=== PATIENT | female | born 1950 | race Caucasian/White ===

== ENCOUNTER → 2016-11-04 | Outpatient (CLI) | payer OTHER ==
[2016-01-11 05:30] VITALS: BP 135/59
[~2016-11-04] MED LIST: ACET-704 PO; ACET325T21 PO; ACET650S11 RC; ACET650S19 PO; ALPR0.254 PO; BISA10SU2 PR; CETI10TA22 PO; CITA20TA9 PO; CLON0.5T3 PO; DIVA500T4 PO; FURO-69 PO; GUAI118L3 PO; LEVE500T56 PO; LOVA20TA2 PO; MAG360OR24 PO; MAGN2400 PO; NAPR500T3 PO; OMEP20CA9 PO; OXYC10TA57 PO; OXYC5TAB PO; PHEN32.42 PO; POLY17PO3 PO; POLY17PO5 PO; POTA20TA84 PO; SENN8.6C2 PO
--- NOTE | 2016-11-04 21:01 | EEG ---
DATE OF SERVICE: 11/04/2016 EEG NUMBER: [id number]. OBJECTIVE: This is a 66-year-old female patient with history of epilepsy and mental retardation. EEG was requested to evaluate seizure activity. METHODS: Twenty electrodes were applied according to the international 10-20 electrode placement system. EKG monitoring, hyperventilation, intermittent photic stimulation, and monopolar and bipolar montages are routinely utilized. The record was obtained on a digital system with video monitoring. MEDICATION: Depakote FINDINGS: 1. Background: The patient was recorded in the awake and drowsy states. No sleep state was recorded. The overall background amplitude is 10-20 microvolts. A posterior dominant rhythm of 8 Hz is observed. 2. Abnormalities: No specific epileptiform discharge or electrographic seizure is seen. No focal or diffuse slowing. 3. Activation: Hyperventilation was not performed because the patient was unable to perform the technique. Intermittent photic stimulation was performed with photic driving. No specific epileptiform discharge or electrographic seizure induced. IMPRESSION: This EEG is within the normal limits of the study for the awake and drowsy states. No sleep state was recorded. No focal, lateralizing, specific epileptiform discharge, or electrographic seizure is seen. HEMA KESSLER MD DR: MALCOLM/glen JOB#: [id number] / [id number] DEONNA
== END | disposition home or self-care (01) ==
LOC: RT 07:52
PROVIDERS: ATTEND Psychiatry & Neurology Neurology
DX: G40.909 Epilepsy, unspecified, not intractable, without status epilepticus (principal)
CPT/HCPCS: 95816

== ENCOUNTER → 2017-12-29 | Outpatient (CLI) | payer OTHER | END | disposition home or self-care (01) | LOC: RT 07:46 | DX: R56.9 Unspecified convulsions (principal) | CPT/HCPCS: 95816 ==

== ENCOUNTER → 2019-01-04 | Outpatient (CLI) | payer OTHER ==
[2017-03-24 11:00] VITALS: BP 100/42
[~2019-01-04] MED LIST changes: +ACET500T68 PO; +ACET650S PO; -ACET650S19 PO; +CLON0.5T11 PO; -CLON0.5T3 PO; +CYAN10005 PO; +ERGO500027 PO; +GABA-585 PO; +LEVE100020 PO; +NAPR-514 PO; -NAPR500T3 PO; +NAPR500T8 PO; +OMEP20CA10 PO; -OMEP20CA9 PO; -OXYC5TAB PO; +OXYC5TAB4 PO; +POLY17PO28 PO; +POLY17PO29 PO; -POLY17PO3 PO; -POLY17PO5 PO
--- NOTE | 2019-01-12 11:45 | EEG ---
DATE OF SERVICE: 01/04/2019 EEG NUMBER: [id number] OBJECTIVE: This is a 68-year-old female patient with a history of epilepsy and intellectual disability. EEG was requested to evaluate seizure activity. METHODS: Twenty electrodes were applied according to the international 10-20 electrode placement system. EKG monitoring, hyperventilation, intermittent photic stimulation, monopolar and bipolar montages are routinely utilized. The record was obtained on a digital system with video monitoring. MEDICATION: Depakote. FINDINGS: 1. Background: The patient was recorded in the awake and drowsy states. No actual sleep state was recorded. The overall background amplitude is 10-20 microvolts. A posterior dominant rhythm of 6-8 Hz is observed. 2. Abnormalities: No specific epileptiform discharge or electrographic seizure is seen. No focal or diffuse slowing. 3. Activation: Hyperventilation was not performed because the patient was not cooperative. Intermittent photic stimulation was performed with photic driving. No specific epileptiform discharge or electrographic seizure induced by intermittent photic stimulation. IMPRESSION: This is EEG falls into the category of the abnormal study for the awake, drowsy, and sleep states. The posterior dominant rhythm of 6-8 Hz is slow for age. No focal, lateralizing, specific epileptiform discharge or electrographic seizure is seen. HEMA KESSLER MD DR: MALCOLM/glen JOB#: [id number] / [id number] DEONNA
== END | disposition home or self-care (01) ==
LOC: RT 08:29
PROVIDERS: ATTEND Psychiatry & Neurology Neurology
DX: R94.01 Abnormal electroencephalogram [EEG] (principal); Z86.69 Personal history of other diseases of the nervous system and sense organs
CPT/HCPCS: 95816

== ENCOUNTER → 2020-04-10 | Outpatient (CLI) | payer OTHER ==
[2017-03-24 11:00] VITALS: BP 100/42
[~2020-04-10] MED LIST changes: -BISA10SU2 PR; +BISA10SU4 PR; -CETI10TA22 PO; +CETI10TA74 PO; +CLON-77 PO; -CLON0.5T11 PO; +CYAN-25 PO; -CYAN10005 PO; -MAGN2400 PO; +MAGN24003 PO; -OMEP20CA10 PO; +OMEP20CA16 PO; -PHEN32.42 PO; +PHEN32.45 PO
--- NOTE | 2020-04-10 14:14 | KCIC ---
EXAM: Bilateral screening mammogram. HISTORY: 69-year-old female presents for screening mammography. TECHNIQUE: Full-field digital craniocaudal and mediolateral oblique views of both breasts are obtained for evaluation. Computer aided detection with [employer] software version 9.3 was applied. COMPARISON: None. This is a baseline mammogram. BREAST PARENCHYMAL DENSITY: Level B - Scattered fibroglandular densities. FINDINGS: There is a small cluster of microcalcifications within the posterior 12:00 position of the right breast with indeterminate morphology. There are additional benign calcifications scattered throughout both breasts. There is a small nodular asymmetry within the lateral aspect of the left breast at mid depth in the craniocaudal projection. There is no architectural distortion within either breast. IMPRESSION: BI-RADS Category 0: Incomplete. Additional imaging needed. RECOMMENDATION: Further evaluation with spot magnification views of clustered calcifications within the posterior 12:00 position of the right breast and a full field true lateral view and spot compression craniocaudal view of the left breast to assess nodular asymmetry within the medial breast at mid depth is recommended. Sonographic imaging of the left breast can also be performed if deemed indicated based on additional mammographic findings. If your mammogram demonstrates that you have dense breast tissue, which could hide abnormalities, and if you have other risk factors for breast cancer that have been identified, you might benefit from supplemental screening tests that may be suggested by your ordering physician. Dense breast tissue, in and of itself, is a relatively common condition. This information is not provided to cause undue concern, but rather to raise your awareness and to promote discussion with your physician regarding the presence of other risk factors, in addition to dense breast tissue. A report of your mammography results will be sent to you and your physician. You should contact your physician if you have any questions or concerns regarding this report. Mammography is a sensitive method for finding small breast cancers, but it does not detect them all and is not a substitute for careful clinical examination. A negative mammogram does not negate a clinically suspicious finding and should not result in delay in biopsying a clinically suspicious abnormality. PQRS compliance statement - Patient information was entered into a reminder system with a target due date for the next mammogram. "Our facility is accredited by the [employer] Mammography Program." Electronically signed by: Aimee Lei MD (04/10/2020 2:11 PM) [place] [id number]
== END | disposition home or self-care (01) ==
LOC: KCIC MAMMO 12:16
PROVIDERS: ATTEND Family Medicine
DX: Z12.31 Encounter for screening mammogram for malignant neoplasm of breast (principal); N64.89 Other specified disorders of breast
CPT/HCPCS: 77067